=== PATIENT | male | born 1985 ===

== ENCOUNTER 2018-01-30 08:50 | Emergency (ER) | payer OTHER ==
[2018-01-30 08:54] VITALS: BMI 29.7
--- NOTE | 2018-01-30 09:10 | ED PDOC ---
HPI: CCC, URI, Sore Throat Time Seen by Provider: 01/30/18 08:58 Chief Complaint (Nursing): ENT Problem History Per: Patient Onset/Duration Of Symptoms: Days (3) Current Symptoms Are (Timing): Still Present Location Of Pain: Throat Associated Symptoms: Sore Throat, Neck Pain. denies: Fever, Cough Severity: Moderate Pain Scale Rating Of: 4 Additional Complaint(s): Left sided neck and throat pain, worse on swallowing x 3 days. Denies fever or SOB. Pain radiates to left ear and left shoulder. Past Medical History Vital Signs: Last Vital Signs Temp 98.4 F 01/30/18 08:53 Pulse 82 01/30/18 08:53 Resp 20 01/30/18 08:53 BP 123/71 01/30/18 08:53 Pulse Ox 97 01/30/18 09:10 - Medical History PMH: No Chronic Diseases - Family History Family History: States: Unknown Family Hx - Home Medications Home Medications: Ambulatory Orders Medication Instructions Recorded Amoxicillin/Potassium Clav 1 tab PO TID #30 tab 01/30/18 [Augmentin 500 mg-125 mg] Naproxen [Naprosyn] 500 mg PO Q12H #20 tab 01/30/18 - Allergies Allergies/Adverse Reactions: Allergies Allergy/AdvReac Type Severity Reaction Status Date / Time No Known Allergies Allergy Verified 01/30/18 09:07 Review of Systems Constitutional: Negative for: Fever ENT: Positive for: Ear Pain, Throat Pain Respiratory: Negative for: Cough, Shortness of Breath Musculoskeletal: Positive for: Neck Pain Physical Exam - Physical Exam Appears: Positive for: Non-toxic, No Acute Distress Skin: Positive for: Normal Color, Warm, DRY Eye Exam: Positive for: Normal appearance ENT: Positive for: Pharyngeal Erythema, Tonsillar Swelling, Other (No deviation of uvula). Negative for: Tonsillar Exudate Neck: Positive for: Normal, Painless ROM, Supple Cardiovascular/Chest: Positive for: Regular Rate, Rhythm Respiratory: Positive for: CNT, Normal Breath Sounds - Laboratory Results Result Diagrams: 01/30/18 09:55 01/30/18 09:55 - ECG O2 Sat by Pulse Oximetry: 97 Disposition - Clinical Impression Clinical Impression: Acute bacterial tonsillitis - Patient ED Disposition Is Patient to be Admitted: No Counseled Patient/Family Regarding: Studies Performed, Diagnosis, Need For Followup, Rx Given - Disposition Referrals: [facility] [place] [Outside] Disposition: Routine/Home Disposition Time: 12:09 Condition: FAIR Prescriptions: Amoxicillin/Potassium Clav [Augmentin 500 mg-125 mg] 1 tab PO TID #30 tab Naproxen [Naprosyn] 500 mg PO Q12H #20 tab Instructions: Sore Throat, Adult (DC) Forms: [employer] (Thai)
[2018-01-30 10:06] LABS: EOS # 0.1 K/uL (0.0-0.7); HEMOGLOBIN 16.2 g/dL (12.0-18.0); LYMPH # 1.7 K/uL (1.0-4.3); LYMPH % 44.1 % (20.0-40.0); MEAN CELL VOLUME 85.4 fl (80.0-94.0); MEAN CORPUSCULAR HEMOGLOBIN 28.9 pg (27.0-31.0); MEAN CORPUSCULAR HGB CONC 33.8 g/dL (33.0-37.0); MEAN PLATELET VOLUME 9.9 fl (7.2-11.7); MONO # 0.5 K/uL (0.0-0.8); MONO % 12.3 % (0.0-10.0); NEUT # 1.6 K/uL (1.8-7.0); NEUT % 40.6 % (50.0-75.0); NRBC % 0.1 % (0.0-0.0); RBC 5.6 Mil/uL (4.40-5.90); RED CELL DISTRIBUTION WIDTH 14.3 % (11.5-14.5); WHITE BLOOD COUNT 3.9 K/uL (4.8-10.8)
[2018-01-30 10:20] LABS: ALB/GLOB RATIO 1.3 (1.0-2.1); ALBUMIN 4.4 g/dL (3.5-5.0); ALT/SGPT 49 U/L (21-72); AST/SGOT 42 U/L (17-59); BLOOD UREA NITROGEN 7 mg/dl (9-20); CALCIUM 9.3 mg/dL (8.4-10.2); GFR AFRICAN-AMERICAN > 60; GFR NON-AFRICAN AMERICAN > 60
[2018-01-30] MEDS ORDERED: Iohexol 300 100 ML IJ ONE (10:49)
--- NOTE | 2018-01-30 11:48 | CT ---
Date of service: 01/30/2018 PROCEDURE: CT NECK WITH CONTRAST HISTORY: left sided tonsilar swelling COMPARISON: None TECHNIQUE: CT of the neck with intravenous contrast. Coronal and sagittal reformats generated. Intravenous contrast dose: Omnipaque 300, 95 cc Radiation dose: DLP 371.43 mGy-cm This CT exam was performed using one or more of the following dose reduction techniques: Automated exposure control, adjustment of the mA and/or kV according to patient size, and/or use of iterative reconstruction technique. FINDINGS: NASOPHARYNX: Unremarkable. SUPRAHYOID NECK: There is moderate prominence of the bilateral tonsillar pillars at the posterior oral cavity/oropharynx without airway compromise or abscess formation. The appearance is slightly asymmetric with the left tam for slightly greater than the right at this time. The oral cavity and oropharynx appear otherwise unremarkable. Unremarkable parapharyngeal space and retropharyngeal space. INFRAHYOID NECK: Unremarkable larynx, hypopharynx, and supraglottic space. Vocal cords intact. MASS: None. GLANDS: Parotid and submandibular glands unremarkable. Normal size thyroid gland, without nodule. LYMPH NODES: No significant lymphadenopathy is appreciated in the supra or infrahyoid neck. Shotty lymph nodes are identified instead. CERVICAL SPINE: No fracture or focal lesion. VASCULAR STRUCTURES: Unremarkable. OTHER FINDINGS: None. IMPRESSION: Moderate tonsillitis without abscess formation. The pattern is borderline greater the left and right side. No significant airway compromise at this time.
[2018-01-30 13:01] VITALS: BP 123/77; PULSE 74; RESP 16; TEMP 98.2; O2SAT 99
== END 2018-01-30 13:01 | disposition home or self-care (01) ==
LOC: H.ER 08:50
DX: J03.90 Acute tonsillitis, unspecified (principal)
CPT/HCPCS: 70491; 80053; 85025; 87070; 87430; 99283; Q9967